=== PATIENT | female | born 1965 | race Caucasian/White ===

== ENCOUNTER → 2024-02-29 14:46 | Outpatient (REF) | payer BC, SELFPAY | LOC: WDC 14:46 | PROVIDERS: ATTENDING PHYSICIAN Nurse Practitioner Adult Health; FAMILY PHYSICIAN Physician Assistant Medical | DX: Z12.31 Encounter for screening mammogram for malignant neoplasm of breast (principal) | CPT/HCPCS: 77063; 77067 ==

== ENCOUNTER → 2025-03-06 14:52 | Outpatient (REF) | payer BC, SELFPAY | LOC: WDC 14:52 | PROVIDERS: ATTENDING PHYSICIAN Nurse Practitioner Adult Health; FAMILY PHYSICIAN Physician Assistant Medical | DX: Z12.31 Encounter for screening mammogram for malignant neoplasm of breast (principal) | CPT/HCPCS: 77063; 77067 ==